=== PATIENT | female | born 1990 | race Caucasian/White ===

== ENCOUNTER 2018-03-08 01:32 | Emergency (ER) | payer SELFPAY ==
[~2018-03-08] VITALS: Ht 167.6 cm; Wt 76.0 kg
[~2018-03-08 01:32] MED LIST: ALBU8HFA IH; DIVA-78 PO
[2018-03-08] MEDS ORDERED: ALPR0.5T8 PO (01:49)
[2018-03-08] MEDS ORDERED: CITA-106 PO (01:49)
[2018-03-08 02:24] LABS: BASOPHILS % (AUTO) 0.6 % (0.0-2.0); EOSINOPHILS % (AUTO) 6.6 % (1.0-6.0); HEMATOCRIT 38.7 % (36-46); HEMOGLOBIN 13.3 g/dL (12.0-16.0); LYMPHOCYTES # (AUTO) 3.6 K/uL (1.0-4.8); LYMPHOCYTES % (AUTO) 34.5 % (22.0-44.0); MEAN CORPUSCULAR HEMOGLOBIN 31.8 pg (26.0-34.0); MEAN CORPUSCULAR HGB CONC 34.4 G/dL (31.0-37.0); MEAN CORPUSCULAR VOLUME 92 fL (80-100); MONOCYTES # (AUTO) 0.5 K/uL (0.1-1.0); MONOCYTES % (AUTO) 4.6 % (2.0-9.0); NEUTROPHILS # (AUTO) 5.6 K/uL (1.8-7.7); NEUTROPHILS % (AUTO) 53.7 % (40.0-70.0); PLATELET COUNT (AUTO) 363 K/uL (150-450); RED BLOOD CELL COUNT(AUTO) 4.19 MIL/uL (4.00-5.20); RED CELL DISTRIBUTION WIDTH 13.1 % (11.5-14.5)
[2018-03-08 02:33] LABS: ANION GAP 14 mmol/L (8-16); CALCIUM, TOTAL 8.1 mg/dL (8.8-10.5); CARBON DIOXIDE 23 mmol/L (22-29); CHLORIDE 105 mmol/L (98-107); CREATININE 0.82 mg/dL (0.60-1.30); GLOMERULAR FILTR. RATE CALC > 60 mL/min (>60); GLUCOSE,RANDOM 91 mg/dL (70-110); POTASSIUM 3.7 mmol/L (3.5-5.1); SODIUM SERUM 142 mmol/L (136-145); UREA NITROGEN, BLOOD 7 mg/dL (7-18)
[2018-03-08 02:39] LABS: ALANINE AMINOTRANSFERASE 28 U/L (12-78); ALBUMIN 3.4 g/dL (3.4-5.0); ALKALINE PHOSPHATASE 86 U/L (46-116); ASPARTATE AMINOTRANSFERASE 28 U/L (15-37); BILIRUBIN,TOTAL 0.2 mg/dL (0.1-1.0); TOTAL PROTEIN, SERUM 7.7 g/dL (6.4-8.2)
[2018-03-08 02:54] LABS: AMPHET/METH SCREEN,URINE NEGATIVE (NEGATIVE); BARBITURATE SCREEN, URINE NEGATIVE (NEGATIVE); BENZODIAZEPINES SCREEN,URINE NEGATIVE (NEGATIVE); CANNABINOID SCREEN,URINE NEGATIVE (NEGATIVE); COCAINE SCREEN,URINE NEGATIVE (NEGATIVE); METHADONE SCREEN, URINE NEGATIVE (NEGATIVE); OPIATE SCREEN,URINE NEGATIVE (NEGATIVE); PHENCYCLIDINE SCREEN,URINE NEGATIVE (NEGATIVE)
[2018-03-08 05:38] VITALS: BP 117/60
== END 2018-03-08 06:02 | disposition home or self-care (01) ==
LOC: EMS 01:33
DX: S60.221A Contusion of right hand, initial encounter (principal); R45.851 Suicidal ideations; F32.9 Major depressive disorder, single episode, unspecified; F10.129 Alcohol abuse with intoxication, unspecified; F14.10 Cocaine abuse, uncomplicated; F41.9 Anxiety disorder, unspecified; J45.909 Unspecified asthma, uncomplicated; F17.210 Nicotine dependence, cigarettes, uncomplicated; Z79.899 Other long term (current) drug therapy; Y90.9 Presence of alcohol in blood, level not specified; W22.01XA Walked into wall, initial encounter; Y93.89 Activity, other specified; Y92.89 Other specified places as the place of occurrence of the external cause; Y99.8 Other external cause status
CPT/HCPCS: 36415; 73130; 80053; 80307; 84703; 85025; 99285; 99406; G0480

== ENCOUNTER 2018-05-31 02:20 | Inpatient (IN) | payer SELFPAY ==
[~2018-05-31] VITALS: Ht 167.6 cm; Wt 76.2 kg
[~2018-05-31 02:20] MED LIST changes: -ALBU8HFA IH; +ALPR0.5T8 PO; +CITA-106 PO; -DIVA-78 PO
[2018-05-31] MEDS ORDERED: ZOLP10TA7 PO (02:26)
[2018-05-31 02:47] LABS: BASOPHILS % (AUTO) 0.9 % (0.0-2.0); EOSINOPHILS % (AUTO) 7.6 % (1.0-6.0); HEMATOCRIT 41.6 % (36-46); HEMOGLOBIN 14.5 g/dL (12.0-16.0); LYMPHOCYTES # (AUTO) 3.5 K/uL (1.0-4.8); LYMPHOCYTES % (AUTO) 33.4 % (22.0-44.0); MEAN CORPUSCULAR HGB CONC 34.9 G/dL (31.0-37.0); MEAN CORPUSCULAR VOLUME 92 fL (80-100); MONOCYTES # (AUTO) 0.5 K/uL (0.1-1.0); MONOCYTES % (AUTO) 4.7 % (2.0-9.0); NEUTROPHILS # (AUTO) 5.6 K/uL (1.8-7.7); NEUTROPHILS % (AUTO) 53.4 % (40.0-70.0); PLATELET COUNT (AUTO) 372 K/uL (150-450); RED BLOOD CELL COUNT(AUTO) 4.54 MIL/uL (4.00-5.20); RED CELL DISTRIBUTION WIDTH 13.1 % (11.5-14.5)
[2018-05-31 03:01] LABS: AMPHET/METH SCREEN,URINE NEGATIVE (NEGATIVE); BARBITURATE SCREEN, URINE NEGATIVE (NEGATIVE); BENZODIAZEPINES SCREEN,URINE POSITIVE (NEGATIVE); CANNABINOID SCREEN,URINE NEGATIVE (NEGATIVE); COCAINE SCREEN,URINE NEGATIVE (NEGATIVE); METHADONE SCREEN, URINE NEGATIVE (NEGATIVE); OPIATE SCREEN,URINE NEGATIVE (NEGATIVE); PHENCYCLIDINE SCREEN,URINE NEGATIVE (NEGATIVE)
[2018-05-31] MEDS ORDERED: LORazepam 2 MG/ML VIAL IM ONE (03:15)
[2018-05-31] MEDS ORDERED: DiphenhydrAMINE HCL 50 MG/ML VIAL IM ONE (03:15)
[2018-05-31] MEDS ORDERED: HALOPERIDOL LACTATE 5 MG/ML VIAL IM ONE (03:15)
[2018-05-31 03:23] LABS: ANION GAP 11 mmol/L (8-16); CALCIUM, TOTAL 8.1 mg/dL (8.8-10.5); CARBON DIOXIDE 25 mmol/L (22-29); CHLORIDE 105 mmol/L (98-107); CREATININE 0.94 mg/dL (0.60-1.30); GLOMERULAR FILTR. RATE CALC > 60 mL/min (>60); GLUCOSE,RANDOM 99 mg/dL (70-110); POTASSIUM 3.7 mmol/L (3.5-5.1); SODIUM SERUM 141 mmol/L (136-145); UREA NITROGEN, BLOOD 9 mg/dL (7-18)
[2018-05-31 03:29] LABS: ALANINE AMINOTRANSFERASE 20 U/L (12-78); ALBUMIN 3.7 g/dL (3.4-5.0); ALKALINE PHOSPHATASE 94 U/L (46-116); ASPARTATE AMINOTRANSFERASE 16 U/L (15-37); BILIRUBIN,TOTAL 0.3 mg/dL (0.1-1.0); TOTAL PROTEIN, SERUM 8.2 g/dL (6.4-8.2)
[2018-05-31] MEDS ORDERED: HALOPERIDOL 5 MG TABLET PO PRN (04:30)
[2018-05-31] MEDS ORDERED: LORazepam 2 MG TABLET PO PRN (04:30)
[2018-05-31] MEDS ORDERED: ZOLPIDEM TARTRATE 10 MG TABLET PO PRN (04:30)
[2018-05-31 04:34] LABS: APPEARANCE,URINE CLEAR (CLEAR); BILIRUBIN,URINE NEGATIVE (NEGATIVE); GLUCOSE, URINE (UA) NEGATIVE (NEGATIVE); KETONES,URINE NEGATIVE (NEGATIVE); LEUKOCYTE ESTERASE ,URINE NEGATIVE (NEGATIVE); NITRATE,URINE NEGATIVE (NEGATIVE); PROTEIN,URINE NEGATIVE (NEGATIVE); UROBILINOGEN,URINE 0.2 mg/dL (<=1.0)
[2018-05-31 04:43] LABS: BACTERIA,URINE None Seen /HPF (None Seen); OCCULT BLOOD,URINE TRACE (NEGATIVE); RBC,URINE 0-2 /HPF (0-2); WBC,URINE None Seen /HPF (0-5)
[2018-05-31 14:40] VITALS: BP 110/61
[2018-05-31] MEDS ORDERED: ACETAMINOPHEN 325 MG TABLET PO PRN (16:00)
[2018-05-31] MEDS ORDERED: ALBUTEROL SULFATE HFA 90 MCG/PUFF 8 GM INHALER IH PRN (16:00)
[2018-05-31] MEDS ORDERED: LOPERAMIDE HCL 2 MG CAPSULE PO PRN (16:00)
[2018-05-31] MEDS ORDERED: MAGNESIUM HYDROXIDE SUSPENSION 30 ML UDCUP PO PRN (16:00)
[2018-05-31] MEDS ORDERED: DOCUSATE SODIUM 100 MG CAPSULE PO PRN (16:00)
[2018-05-31] MEDS ORDERED: PETROLATUM,WHITE 71 GM JELLY TP PRN (16:00)
[2018-05-31] MEDS ORDERED: NICOTINE 14 MG/24 HOUR PATCH TD PRN (16:00)
[2018-05-31] MEDS ORDERED: MAG HYDROX/AL HYDROX/SIMETH ES 30 ML SUSPENSION UDCUP PO PRN (16:00)
[2018-05-31] MEDS ORDERED: IBUPROFEN 400 MG TABLET PO PRN (16:00)
[2018-05-31 16:30] VITALS: BP 111/71
[2018-05-31] MEDS: NEOMYCIN/BACITRACIN/POLYMYXIN B 30 GM OINTMENT TP SCH ×2 (21:35→21:42)
[2018-06-01] VITALS (7 sets, daily range): BP systolic 105–137; BP diastolic 57–75
[2018-06-01] MEDS ORDERED: -PHARMACY VACCINE NOTE- MISC ONE (01:00)
[2018-06-01] MEDS: NEOMYCIN/BACITRACIN/POLYMYXIN B 30 GM OINTMENT TP SCH ×2 (08:33→16:38)
[2018-06-01 08:45] LABS: HEMOGLOBIN A1C 5.1 % (4.5-6.2)
[2018-06-01 09:21] LABS: CHOL/HDL RATIO 3.8 (3.9-5.7); CHOLESTEROL 195 mg/dL (131-200); FREE T4 (FREE THYROXINE) 0.82 ng/dL (0.76-1.46); HDL CHOLESTEROL 52 mg/dL (40-60); LDL CHOL (CALC.) 129 mg/dL (0-130); THYROID STIMULATING HORMONE 4.57 uIU/mL (0.36-3.74); TRIGLYCERIDES 70 mg/dL (15-150)
[2018-06-01] MEDS ORDERED: ACETAMINOPHEN 325 MG TABLET PO PRN (12:45)
[2018-06-01] MEDS ORDERED: LOPERAMIDE HCL 2 MG CAPSULE PO PRN (12:45)
[2018-06-01] MEDS ORDERED: CYANOCOBALAMIN 1,000 MCG/ML VIAL IM ONE (12:45)
[2018-06-01] MEDS ORDERED: MAGNESIUM HYDROXIDE SUSPENSION 30 ML UDCUP PO PRN (12:45)
[2018-06-01] MEDS ORDERED: TUBERCULIN, PURIFIED PROTEIN DERIVATIVE 5 TU/0.1 ML SYG ID ONE (12:45)
[2018-06-01] MEDS ORDERED: GuaiFENesin/D-METHORPHAN [SUGAR-FREE] 200-20MG/10 ML SYRUP UDCUP PO PRN (12:45)
[2018-06-01] MEDS ORDERED: HydrOXYzine PAMOATE 50 MG CAPSULE PO PRN (12:45)
[2018-06-01] MEDS ORDERED: MAG HYDROX/AL HYDROX/SIMETH ES 30 ML SUSPENSION UDCUP PO PRN (12:45)
[2018-06-01] MEDS ORDERED: LORazepam 2 MG TABLET PO PRN (12:45)
[2018-06-01] MEDS ORDERED: PROMETHAZINE HCL 25 MG TABLET PO PRN (12:45)
[2018-06-01] MEDS ORDERED: NALT50TA PO (14:50)
[2018-06-01] MEDS ORDERED: CITA20TA17 PO (14:50)
[2018-06-01] MEDS: THIAMINE HCL 100 MG TABLET PO SCH (16:38)
[2018-06-01] MEDS ORDERED: THIA100T67 PO (22:27)
[2018-06-01] MEDS ORDERED: MULT-1239 PO (22:27)
[2018-06-01] MEDS ORDERED: FOLI1TAB15 PO (22:27)
[2018-06-01] MEDS ORDERED: NALT50TA6 PO (22:27)
[2018-06-02 00:30] VITALS: BP 114/66
[2018-06-02 04:22] VITALS: BP 112/66
[2018-06-02 06:12] VITALS: BP 103/62
[2018-06-02 06:24] VITALS: BP 103/62
[2018-06-02] MEDS ORDERED: LORazepam 2 MG TABLET PO PRN (07:00)
[2018-06-02 08:24] VITALS: BP 117/55
[2018-06-02] MEDS: THIAMINE HCL 100 MG TABLET PO SCH (08:42)
[2018-06-02] MEDS: NEOMYCIN/BACITRACIN/POLYMYXIN B 30 GM OINTMENT TP SCH (08:42)
[2018-06-02] MEDS ORDERED: FOLIC ACID 1 MG TABLET PO SCH (09:00)
[2018-06-02] MEDS ORDERED: CITALOPRAM HYDROBROMIDE 20 MG TABLET PO SCH (09:00)
[2018-06-02] MEDS ORDERED: NALTREXONE HCL 50 MG TABLET PO SCH (09:00)
[2018-06-02] MEDS ORDERED: MULTIVITAMINS WITH MINERALS, THERAPEUTIC TABLET PO SCH (09:00)
[2018-06-02] MEDS ORDERED: FLUoxetine HCL 20 MG CAPSULE PO SCH (09:00)
[2018-06-02] MEDS ORDERED: LORazepam 2 MG TABLET PO SCH (09:00)
[2018-06-02] MEDS ORDERED: NEOM1OIN8 TP (10:23)
[2018-06-04] MEDS ORDERED: LORazepam 1 MG TABLET PO PRN (07:00)
[2018-06-04] MEDS ORDERED: LORazepam 1 MG TABLET PO SCH (09:00)
[2018-06-04] MEDS ORDERED: LOPERAMIDE HCL 2 MG CAPSULE PO PRN (12:45)
[2018-06-05] MEDS ORDERED: LORazepam 1 MG TABLET PO PRN (07:00)
== END 2018-06-02 11:10 | disposition home or self-care (01) | DRG 885 ==
LOC: EMS 02:20 → B2S 04:35
PROVIDERS: ADMIT Psychiatry & Neurology Child & Adolescent Psychiatry; ATTEND Psychiatry & Neurology Psychiatry
DX: F33.9 Major depressive disorder, recurrent, unspecified (principal); F40.00 Agoraphobia, unspecified; F10.129 Alcohol abuse with intoxication, unspecified; F17.200 Nicotine dependence, unspecified, uncomplicated; F41.0 Panic disorder [episodic paroxysmal anxiety]; J44.9 Chronic obstructive pulmonary disease, unspecified; F19.10 Other psychoactive substance abuse, uncomplicated; S40.812A Abrasion of left upper arm, initial encounter; Z91.5 Personal history of self-harm; Z23 Encounter for immunization; Z71.6 Tobacco abuse counseling; Z56.0 Unemployment, unspecified; Z79.899 Other long term (current) drug therapy; Z71.51 Drug abuse counseling and surveillance of drug abuser; Z91.19 Patient's noncompliance with other medical treatment and regimen; Z81.8 Family history of other mental and behavioral disorders
CPT/HCPCS: 83036; 84439; 84443; 90686; 96372; G0480; J1200; J1630; J2060; J3420; J3535